=== PATIENT | female | born 1980 | race African-American/Black ===

== ENCOUNTER 2018-06-07 10:44 | Emergency (ER) | payer OTHER ==
[2018-06-07] MEDS ORDERED: Metoclopramide HCl 10 MG TAB ONE (11:59)
[2018-06-07 12:19] LABS: Bilirubin Negative (Negative); Blood, Urine Negative (Negative); Clarity Clear (Clear); Glucose, Urine (Dipstick) 250 mg/dL (Negative); Leukocyte Negative (Negative); Nitrite Negative (Negative); Protein, Urine (Dipstick) Negative (Neg-Trace); Specific Gravity, Urine 1.025 (1.005-1.030); Urobilinogen 0.2 mg/dL (0.2-1.0); pH, Urine 5.5 (5.0-9.0)
[2018-06-07 12:32] LABS: ALT (SGPT) 15 U/L (8-55); AST (SGOT) 11 U/L (5-34); Albumin 3.5 g/dL (3.5-5.0); Alkaline Phosphatase 64 U/L (40-150); Anion Gap 12 mmol/L (10-20); BUN (Urea Nitrogen) 5 mg/dL (7.0-18.7); Bilirubin, Total 0.1 mg/dL (0.2-1.2); Calc. Creatinine Clearance 0 mL/min (70-130); Calcium 9.6 mg/dL (7.8-10.44); Carbon Dioxide 24 mmol/L (22-29); Chloride 105 mmol/L (98-107); Estimated GFR-MDRD Greater than 90; Globulin 3.4 g/dL (2.4-3.5); Glucose 83 mg/dL (70-105); Lipase 10 U/L (8-78); Potassium 3.7 mmol/L (3.5-5.1); Protein, Total 6.9 g/dL (6.0-8.3); Sodium 137 mmol/L (136-145)
[2018-06-07 12:35] LABS: Eosinophils 1 % (0-10); Hemoglobin 10.9 g/dL (12.0-16.0); Lymphocytes 33 % (21-51); MDiff Complete? YES; Mean Corpuscular HGB CONC 30.5 g/dL (32.0-36.0); Mean Corpuscular Hemoglobin 21.3 pg (27.0-31.0); Mean Corpuscular Volume 69.8 fL (78.0-98.0); Mean Platelet Volume 8.6 fL (7.4-10.4); Microcytosis SLIGHT = 6-15 cells (100X) (0-5/hpf); Monocytes 7 % (0-10); Neutrophil 57 % (42-75); Platelet Count 232 thou/uL (130-400); RBC Distribution Width 17.9 % (11.5-14.5); Reactive Lymphocytes 1 % (0-10); White Blood Cell (WBC) Count 10.2 thou/uL (4.8-10.8)
== END 2018-06-07 13:25 | disposition home or self-care (01) ==
LOC: NAV ERS 10:44
DX: O99.89 Other specified diseases and conditions complicating pregnancy, childbirth and the puerperium (principal); R11.0 Nausea; O99.342 Other mental disorders complicating pregnancy, second trimester; F41.9 Anxiety disorder, unspecified; O99.332 Smoking (tobacco) complicating pregnancy, second trimester; Z79.899 Other long term (current) drug therapy
CPT/HCPCS: 80053; 81003; 83690; 84702; 85025; 99284

== ENCOUNTER 2018-07-15 10:31 | Emergency (ER) | payer OTHER | END 2018-07-15 12:20 | disposition home or self-care (01) | LOC: NAV ERS 10:31 | DX: O09.512 Supervision of elderly primigravida, second trimester (principal); O26.92 Pregnancy related conditions, unspecified, second trimester; O99.332 Smoking (tobacco) complicating pregnancy, second trimester; F17.210 Nicotine dependence, cigarettes, uncomplicated; Z3A.21 21 weeks gestation of pregnancy | CPT/HCPCS: 99283 ==

== ENCOUNTER 2018-07-25 10:02 | Outpatient (CLI) | payer MEDICAID ==
--- NOTE | 2018-07-25 12:10 | ULT ---
OB ULTRASOUND: HISTORY: Evaluation for size and dates. FINDINGS: Real-time imaging of the pelvis shows a single viable intrauterine in the cephalic presenta tion. The placenta is anterior in location without evidence of previa. Amniotic fluid is adequate f or this stage of . The amniotic fluid index is 14.7. measurements are as follows: BPD 5.5 cm, 22 weeks 6 days Head circumference 20.3 cm, 22 weeks 3 days Abdominal circumference 17.3 cm, 22 weeks 2 days Femur length 3.8 cm, 22 weeks 0 days Review of anatomy does not reveal any abnormalities detected. Head, cerebellum, 4-chamber hear t, stomach, kidneys, and extremities appear normal. IMPRESSION: 1. Single viable intrauterine in a cephalic presentation, overall measurements correspondi ng to 22 weeks 0 days, estimated date of delivery 11/28/2018. 2. Placenta which is anterior in location without evidence of previa. POS: [facility]
== END 2018-07-25 10:03 | disposition home or self-care (01) ==
LOC: NAV ULT 10:02
PROVIDERS: ATTEND Nurse Practitioner
DX: O09.92 Supervision of high risk pregnancy, unspecified, second trimester (principal); Z3A.22 22 weeks gestation of pregnancy
CPT/HCPCS: 76805

== ENCOUNTER 2018-08-14 08:31 | Emergency (ER) | payer MEDICAID, OTHER ==
[2018-08-14] MEDS ORDERED: Metoclopramide HCl 10 MG/2 ML VIAL ONE (08:38)
[2018-08-14] MEDS ORDERED: diphenhydrAMINE 50 MG/ML VIAL ONE (08:38)
[2018-08-14 09:30] LABS: ALT (SGPT) 14 U/L (8-55); AST (SGOT) 18 U/L (5-34); Alkaline Phosphatase 82 U/L (40-150); Anion Gap 13 mmol/L (10-20); BUN (Urea Nitrogen) Less than 4 mg/dL (7.0-18.7); Bilirubin, Total 0.2 mg/dL (0.2-1.2); Calc. Creatinine Clearance 0 mL/min (70-130); Calcium 9.1 mg/dL (7.8-10.44); Carbon Dioxide 20 mmol/L (22-29); Chloride 107 mmol/L (98-107); Estimated GFR-MDRD Greater than 90; Globulin 3.1 g/dL (2.4-3.5); Glucose 88 mg/dL (70-105); Potassium 3.6 mmol/L (3.5-5.1); Protein, Total 6.1 g/dL (6.0-8.3); Sodium 136 mmol/L (136-145)
[2018-08-14 09:33] LABS: #Basophils 0.1 thou/uL (0.0-0.2); #Eosinphils 0.1 thou/uL (0.0-0.7); #Lymphocytes 2.7 thou/uL (1.20-3.40); #Monocytes 0.4 thou/uL (0.11-0.59); #Neutrophils 8.4 thou/uL (1.40-6.50); %Basophils 0.8 % (0.0-1.0); %Eosinophils 0.7 % (0.0-10.0); %Lymphocytes 22.8 % (21.0-51.0); %Monocytes 3.4 % (0.0-10.0); %Neutrophils 72.3 % (42.0-75.0); Hemoglobin 9.7 g/dL (12.0-16.0); Mean Corpuscular HGB CONC 30.9 g/dL (32.0-36.0); Mean Corpuscular Hemoglobin 21.4 pg (27.0-31.0); Mean Corpuscular Volume 69.2 fL (78.0-98.0); Mean Platelet Volume 7.8 fL (7.4-10.4); Platelet Count 224 thou/uL (130-400); RBC Distribution Width 16.9 % (11.5-14.5); Red Blood Cell (RBC) Count 4.53 mill/uL (4.20-5.40); White Blood Cell (WBC) Count 11.6 thou/uL (4.8-10.8)
[2018-08-14 09:38] LABS: Anisocytosis SLIGHT = 6-15 cells (100X) (0-5/hpf); Hypochromia SLIGHT = 6-15 cells (100X) (0-5/hpf); MDiff Complete? YES; Microcytosis MODERATE=15-30 cells (100X) (0-5/hpf); Platelet Morphology Comment Appears Adequate
[2018-08-14] MEDS ORDERED: Sodium Chloride 0.9% 1,000 ML ONE (10:05)
[2018-08-14 10:44] LABS: Bilirubin Negative (Negative); Blood, Urine Trace (Negative); Clarity Clear (Clear); Glucose, Urine (Dipstick) Negative (Negative); Leukocyte Negative (Negative); Nitrite Negative (Negative); Protein, Urine (Dipstick) 30 mg/dL (Neg-Trace); Urobilinogen 0.2 mg/dL (0.2-1.0)
[2018-08-14 11:03] LABS: Bacteria/HPF 1+ HPF (None Seen); Other Microscopic Description NO; RBC/HPF 0-3 HPF (0-3); WBC/HPF 0-3 HPF (0-3)
== END 2018-08-14 11:35 | disposition home or self-care (01) ==
LOC: NAV ERS 08:31
DX: O21.0 Mild hyperemesis gravidarum (principal); O99.332 Smoking (tobacco) complicating pregnancy, second trimester; F17.210 Nicotine dependence, cigarettes, uncomplicated; Z3A.25 25 weeks gestation of pregnancy
CPT/HCPCS: 80053; 81003; 81015; 85025; 87086; 96361; 96374; 96375; J1200; J2765; J7050

== ENCOUNTER 2019-04-04 11:13 | Emergency (ER) | payer OTHER, SELFPAY | END 2019-04-04 11:53 | disposition home or self-care (01) | LOC: NAV ERS 11:13 | DX: S39.012A Strain of muscle, fascia and tendon of lower back, initial encounter (principal); K04.7 Periapical abscess without sinus; K02.9 Dental caries, unspecified; F17.290 Nicotine dependence, other tobacco product, uncomplicated; Z79.899 Other long term (current) drug therapy; X50.0XXA Overexertion from strenuous movement or load, initial encounter | CPT/HCPCS: 99283 ==

== ENCOUNTER 2019-11-20 13:36 | Emergency (ER) | payer OTHER, SELFPAY ==
[2019-11-21 14:47] LABS: SARS-CoV-2 MS2 Positive; SARS-CoV-2 N Gene Negative; SARS-CoV-2 S Gene Negative; SARS-CoV-2 orf1ab Negative
== END 2019-11-20 14:20 | disposition home or self-care (01) ==
LOC: NAV ERS 13:36
DX: R09.81 Nasal congestion (principal); R43.9 Unspecified disturbances of smell and taste; Z20.828 Contact with and (suspected) exposure to other viral communicable diseases; D50.9 Iron deficiency anemia, unspecified; F32.9 Major depressive disorder, single episode, unspecified; F17.290 Nicotine dependence, other tobacco product, uncomplicated
CPT/HCPCS: 87635; 99283; U0003

== ENCOUNTER 2022-12-22 16:08 | Emergency (ER) | payer OTHER ==
[2022-12-22] MEDS ORDERED: Boostrix 0.5 ML (Tdap) VIAL (>/=7 yrs of age) ONE (16:40)
[2022-12-22] MEDS ORDERED: Acetaminophen 500 MG TAB ONE (16:44)
== END 2022-12-22 18:06 | disposition home or self-care (01) ==
LOC: NAV ERS 16:08
DX: S13.4XXA Sprain of ligaments of cervical spine, initial encounter (principal); S80.01XA Contusion of right knee, initial encounter; S60.212A Contusion of left wrist, initial encounter; F17.210 Nicotine dependence, cigarettes, uncomplicated; W01.0XXA Fall on same level from slipping, tripping and stumbling without subsequent striking against object, initial encounter
CPT/HCPCS: 72125; 90471; 90715

== ENCOUNTER 2023-02-26 15:22 | Outpatient (CLI) | payer OTHER | END 2023-02-26 15:23 | disposition home or self-care (01) | LOC: NAV RAD 15:22 | PROVIDERS: ATTEND Nurse Practitioner Family | DX: M25.552 Pain in left hip (principal); M25.752 Osteophyte, left hip ==